=== PATIENT | male | born 1985 | race African-American/Black ===

== ENCOUNTER 2021-07-03 15:52 | Emergency (ER) | payer SELFPAY ==
[~2021-07-03] VITALS: Ht 182.9 cm; Wt 66.7 kg
--- NOTE | 2021-07-03 15:54 | NUR ---
PT BIBRA 62 FROM TRAIN STATION REDLINE C/O OD ON FENTANYL "CRYSTAL". 4MG NARCAN IVP GIVEN. 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 BG 94. PT AWAKE A/OX2 AT THIS TIME. TOLERATING R/A WELL WITH NO SOB AT 99%. CONNECETED PT TO POX AND MONITOR. SAFETY 1:[address]
--- NOTE | 2021-07-03 15:55 | NUR ---
GASKET FORMER LFA #2OG S/L; PATENT AND INTACT
--- NOTE | 2021-07-03 16:09 | NUR ---
URINE COLLECTED AND SENT TO LAB
--- NOTE | 2021-07-03 16:18 | NUR ---
THE PATIENT IS EASIY RESPONSIVE TO VERBAL STIMULI. REMAINS ATTACHED TO THE MONITOR. WILL CONTINUE TO MONITOR THE PATIENT.
--- NOTE | 2021-07-03 16:19 | NUR ---
Regina lilly in [facility] - 07/03/21 at 1620 by MIGUEL ANGEL FREDDY DAIGLE [phone]
[2021-07-03 16:25] LABS: BASOPHILS % (AUTO) 0.3 % (0.0-2.0); EOSINOPHILS % (AUTO) 1.4 % (0.0-6.0); HEMATOCRIT 41 % (39-51); HEMOGLOBIN 13.2 g/dL (13.5-17.5); LYMPHOCYTES # (AUTO) 1.1 K/uL (0.8-4.8); LYMPHOCYTES % (AUTO) 9.6 % (20.0-44.0); MEAN CORPUSCULAR HGB CONC 32 g/dl (31.0-36.0); MEAN CORPUSCULAR VOLUME 96 fL (80-96); MONOCYTES # (AUTO) 0.5 K/uL (0.1-1.30); MONOCYTES % (AUTO) 4.2 % (2.0-12.0); NEUTROPHILS # (AUTO) 9.5 K/uL (1.8-8.9); NEUTROPHILS % (AUTO) 84.5 % (43.0-81.0); PLATELET COUNT (AUTO) 277 K/uL (150-450); RED BLOOD CELL COUNT(AUTO) 4.24 MIL/uL (4.5-6.0); WHITE BLOOD COUNT (AUTO) 11.3 K/uL (4.3-11.0)
[2021-07-03 16:42] LABS: CALCIUM, SERUM 8.4 mg/dL (8.5-10.1); CARBON DIOXIDE 28 mmol/L (21-32); CHLORIDE 104 mmol/L (98-107); CREATININE 1.5 mg/dL (0.6-1.3); GLUCOSE 201 mg/dL (74-106); POTASSIUM 3.4 mmol/L (3.5-5.1); SODIUM SERUM 140 mmol/L (136-145); UREA NITROGEN, BLOOD 10 mg/dL (7-18)
[2021-07-03 16:47] LABS: ACETAMINOPHEN < 2 ug/ml (10-30); ALANINE AMINOTRANSFERASE 123 U/L (12-78); ALBUMIN 3.5 g/dL (3.4-5.0); ALCOHOL, BLOOD < 3 mg/dL (0-0); ALKALINE PHOSPHATASE 110 U/L (46-116); ASPARTATE AMINOTRANSFERASE 144 U/L (15-37); BILIRUBIN,DIRECT 0.1 mg/dL (0.0-0.2); BILIRUBIN,TOTAL 0.4 mg/dL (0.2-1.0); TOTAL PROTEIN, SERUM 6.7 g/dL (6.4-8.2)
[2021-07-03] MEDS ORDERED: IV NS 0.9% 1,000 ML BAG IV ONE (17:00)
[2021-07-03 17:18] LABS: BILIRUBIN,URINE SMALL (NEGATIVE); COLOR,URINE YELLOW (YELLOW); LEUKOCYTE ESTERASE ,URINE NEGATIVE (NEGATIVE); NITRITE, URINE NEGATIVE (NEGATIVE); PROTEIN,URINE 30 mg/dl (NEGATIVE); UGLUCOSE 500 MG/DL mg/dL (NEGATIVE); UROBILINOGEN,URINE 0.2 EU/dL (0.2)
[2021-07-03 17:24] LABS: WBC,URINE 0-2 /HPF (0-3)
[2021-07-03 17:25] LABS: BACTERIA,URINE RARE /HPF (None Seen); MUCUS,URINE Many /LPF (None Seen); SPERM,URINE Few /HPF (None Seen); URINE AMORPHOUS URATE Many /HPF (None Seen)
--- NOTE | 2021-07-03 18:30 | NUR ---
US TECH AT PT'S BEDSIDE
--- NOTE | 2021-07-03 19:16 | NUR ---
REPORT GIVEN TO NURSE JACKSON FOR HEYDI
[2021-07-03] MEDS ORDERED: NALO4SPR NS (21:43)
--- NOTE | 2021-07-03 23:18 | NUR ---
Patient discharged to home in stable condition. Written and verbal after care instructions given. Patient verbalizes understanding of instruction. PT refused to sign homeless waiver. All v/s stable at time of discharge and patient ambulated without difficulty.
--- NOTE | 2021-07-03 23:18 | NUR ---
Patient discharged to home in stable condition. Written and verbal after care instructions given. Patient verbalizes understanding of instruction. PT ambulatory with a steady gait
[2021-07-03 23:19] VITALS: BP 131/94
== END 2021-07-03 23:19 | disposition home or self-care (01) ==
LOC: ER 16:08
DX: F19.10 Other psychoactive substance abuse, uncomplicated (principal); R74.01 Elevation of levels of liver transaminase levels; N17.9 Acute kidney failure, unspecified
CPT/HCPCS: 36415; 76705; 80048; 80076; 80143; 80307; 80320; 81001; 82962; 83735; 85025; 96360; 99285; J7030; G0480